=== PATIENT | male | born 1975 | race Caucasian/White ===

== ENCOUNTER → 2022-08-16 09:14 | Outpatient (BNVA) | payer OTHER, SELFPAY | PROVIDERS: PCP Internal Medicine; Visit Provider Physician Assistant | DX: Z13.89 Encounter for screening for other disorder (principal) ==

== ENCOUNTER → 2022-10-09 15:04 | Outpatient (BNVA) | payer OTHER, SELFPAY | PROVIDERS: PCP Internal Medicine; Referring Provider Internal Medicine; Visit Provider Internal Medicine | DX: Z01.810 Encounter for preprocedural cardiovascular examination (principal); R00.2 Palpitations | CPT/HCPCS: 93005; 99202 ==

== ENCOUNTER 2023-02-11 08:18 | Day surgery (SDC) | payer OTHER, SELFPAY ==
[2023-02-11 06:03] VITALS: BMI 28.6
[2023-02-11 08:21] VITALS: BP 128/85; PULSE 77; RESP 18; TEMP 36.8; O2SAT 97
[2023-02-11] MEDS: Lactated Ringers 1,000 ML 50 ML IVCONT (08:46)
--- NOTE | 2023-02-11 09:22 | HO.ANESPROP2 ---
HPI - Anesthesia Eval Consult details Narrative: 48 yo male patient for Colonoscopy PMFSH Active Problems Active Problems: All Active Problems (Updated 02/11/23 @ 09:25 by Destiny Kearney MD) Preoperative cardiovascular examination (Acute) Palpitations (Acute) Irregular heart beat (Acute) Encounter for screening colonoscopy (Acute) KRISTINE. Uses CPAP machinbe Past Medical History Medical History (Updated 02/11/23 @ 09:30 by Reina Mooney RN) Achilles rupture, left Family History Family History Mother No problems noted. Father No problems noted. Family history of problems with anesthesia: No Surgical History Surgical History (Updated 02/11/23 @ 10:14 by Destiny Kearney MD) Hx of right knee surgery History of Problems with Anesthesia: No Social History Social History Household Members Other:: maried 3 kids Alcohol intake: current Alcohol intake frequency: holidays/special occasions only Patient Tobacco Use Status: Never used Tobacco Are you DNR?: No Advance Directives: No Advance Directives Information Provided: Yes Nutrition Risks: No Nutritional Risk Current occupation: Contractor- Meds Allergies Allergy/AdvReac Type Severity Reaction Status Date / Time No Known Allergies Allergy Verified 10/09/22 15:10 Active Medications: Current Medications Lactated Ringer's (Lr) 1,000 mls @ 50 mls/hr IVCONT .Q20H TRINIDAD Last Admin: 02/11/23 08:46 Dose: 50 mls/hr Exam Exam Date and Time: February 11, 2023 0922 Height,Weight and Vital Signs: Height 5 ft 9 in Weight 87.997 kg Last Vital Signs Temp 98.3 F 02/11/23 08:21 Pulse 77 02/11/23 08:21 Resp 18 02/11/23 08:21 BP 128/85 02/11/23 08:21 Pulse Ox 97 02/11/23 08:21 O2 Del Method Room Air 02/11/23 08:21 Airway Mallampati Class: II TM Dist: >3cm Neck ROM: Full Loose/Missing/Broken Teeth: No (Denies broken, loose, missing teeth) Heart: RRR Lungs: CTAB Assessment and Plan Assessment Anesthesia Assessment: Anesthesia Plan Discussed and Chart Reviewed Final Anesthetic Review Family History of Problems with Anesthesia: No History of Problems with Anesthesia: No NPO: Yes ASA Class: II Final Preanesthetic Review: No Changes in Pt Med Stat, Meds/Allgs Chart Reviewed, Consent Obtained/Reviewed and Anes Risks/Benef Reviewed Patient Risk: Intermediate Procedure Risk: Low Assessment/Block/Sedation in SS: Assess/Block/Sedation-SS Anesthetic Plan Anesthetic Plan: MAC: Disposition: Standard PACU
--- NOTE | 2023-02-11 09:44 | MHC.SHP ---
Pre-Procedural Eval Section A Date of Service: 02/11/23 The patient is an INPATIENT: No The History & Physical has been completed within 30 days and I have reviewed it.: No Section B Chief Complaint: screening Relevant Family History (Specify if Yes): No Relevant Social History: None Present Medications: see Short Stay Collaborative assessment Medical History: Significant History (Palpitations, irregular heartbeat) History of Previous Operations: Relevant previous surgery/procedure and date(s) (History of right knee surgery) Allergies: Allergies Allergy/AdvReac Type Severity Reaction Status Date / Time No Known Allergies Allergy Verified 10/09/22 15:10 Review of Systems Sugical H&P ROS: Negative: Constitution, Cardiovascular, Respiratory and Gastrointestinal Exam Surgical H&P Exam: Normal: Heart, Normal: Lungs, Normal: Extremities and Normal: Abdomen Plan Diagnosis/Plan: Unchanged I have reviewed the history and physical and performed a pertinent physical examination on my patient. No changes have occurred unless specified. Time Spent With Patient Time: Total time managing care of this patient today ____ minutes.
--- NOTE | 2023-02-11 09:50 | W.PM.OPN ---
Operative Note Operative Note Date of Service: 02/11/23 Narrative: COLONOSCOPY TILL CECUM WITH BIOPSY AND SNARE POLYPECTOMY Pre-op diagnosis: screening, FH of colon polyps (Dad had a few polyps in his 70's) Post-op diagnosis:?Colon polyps, diverticulosis, hemorrhoids Endoscopist:? Sarah Gee MD Anesthesia:?MAC Consent: Indications for the procedure and potential complications of bleeding, perforation, reaction to medications and missed diagnosis were discussed with the patient and informed consent was obtained. Instrument: Olympus PCF H 190 L variable stiffness pediatric colonoscope Monitoring: Vital signs and clinical assessment, intermittent blood pressure monitoring, continuous EKG monitoring, Pulse oximetry and Carbon Dioxide monitoring were done throughout the procedure. Please see anesthesia flowsheet. Colon withdrawl time was 17 minutes. Procedure: The patient was placed in the left lateral decubitis position and pre-procedure medications were administered. After a digital rectal examination of the ano-rectum, the video colonoscope was inserted into the rectum and advanced through the colon to the cecum. The colonoscope was slowly withdrawn in a retrograde panoramic fashion and the colon mucosa was carefully examined including a retroflexed view of the rectum. Findings and interventions are described below. Procedure Difficulty: Without difficulty Findings: Terminal Ileum: Not evaluated Cecum: A 7-8 mm sessile polyp -removed with a cold snare. Residual polyp was removed with a cold biopsy Ascending Colon: Normal Transverse Colon: Normal Descending Colon: Moderate diverticulosis Sigmoid Colon: A 10 mm diminutive appearing polyp - removed with a cold snare. Moderate diverticulosis Rectum: Normal Ano-rectum: Moderate internal hemorrhoids Colon preparation: Excellent Impression and Post Procedure Diagnosis: Colonoscopy Findings: Two polyps removed Moderate diverticulosis seen in the left colon Moderate hemorrhoids on retroflexed exam. Rectal bleeding likely due to Hemorrhoids Plan: Await pathology results Patient has an appointment on 02/25/23 in the GI Clinic with BRYON Bardales. Repeat Colonoscopy interval based on path results - in 3-5 years if polyps are adenomatous and 10 years if polyps are hyperplastic. Colon polyps, hemorrhoids and diverticulosis handouts were given in the discharge area
[2023-02-11 10:34] VITALS: BP 96/58; PULSE 64; RESP 12; TEMP 36.3; O2SAT 94
[2023-02-11 10:49] VITALS: BP 112/68; PULSE 60; RESP 12; O2SAT 96
[2023-02-11 11:01] VITALS: BP 115/70; PULSE 73; RESP 16; TEMP 37; O2SAT 96
== END 2023-02-11 11:38 | disposition home or self-care (01) ==
PROVIDERS: PCP Internal Medicine; Visit Provider Internal Medicine Gastroenterology
PROC: 0DJD8ZZ Inspection of Lower Intestinal Tract, Via Natural or Artificial Opening Endoscopic (ICD-10-PCS; CPT 45378; principal; 2023-02-11 10:20)
DX: Z12.11 Encounter for screening for malignant neoplasm of colon (principal); Z83.71 Family history of colonic polyps; D12.0 Benign neoplasm of cecum; K63.5 Polyp of colon; K57.30 Diverticulosis of large intestine without perforation or abscess without bleeding; K64.8 Other hemorrhoids; R00.2 Palpitations; I49.9 Cardiac arrhythmia, unspecified; G47.33 Obstructive sleep apnea (adult) (pediatric); Z99.89 Dependence on other enabling machines and devices
CPT/HCPCS: 45385; 45380; 88305; J2250

== ENCOUNTER → 2023-02-11 08:18 | Outpatient (BNV) | payer OTHER, SELFPAY | PROVIDERS: PCP Internal Medicine; Visit Provider Internal Medicine Gastroenterology | DX: Z12.11 Encounter for screening for malignant neoplasm of colon (principal); D12.0 Benign neoplasm of cecum; D12.5 Benign neoplasm of sigmoid colon; K57.30 Diverticulosis of large intestine without perforation or abscess without bleeding; K64.8 Other hemorrhoids | CPT/HCPCS: 45380; 45385 ==

== ENCOUNTER 2023-02-25 10:07 | Outpatient (AMB) | payer OTHER, SELFPAY ==
--- NOTE | 2023-02-25 10:22 | A.OFFVIS_ITS ---
Intake Vital Signs 02/25/23 10:23 Height 5 ft 9 in Weight 190 lb BMI 28.1 BP 124/75 Blood Pressure Location Lt brachial Position Sitting Pulse 74 Intake Visit Reasons: S/p colon-Gerard Intake Note: Patient follow up for Colonoscopy results. Patient denies any GI issues. Loom Stop Checker Required: No Accompanied by: Self / Same As Patient Allergies No Known Allergies Allergy (Verified 02/25/23 10:22) HPI HPI Comments History of Present Illness Details 48 y/o male f/u after index screening colonoscopy No GI complaints- he expressed appreciation- good experience Reviewed procedure report, path and recommendations Recent torn achilles- No N/V/D abdominal pain- fever or chills PFSH Medical History (Updated 02/25/23 @ 10:33 by Marina Jones PA-C) Achilles rupture, left Surgical History Hx of colonoscopy Hx of right knee surgery Family History Mother No problems noted. Father No problems noted. Social History Household Members Other:: maried 3 kids Alcohol intake: current Alcohol intake frequency: holidays/special occasions only Patient Tobacco Use Status: Never used Tobacco Current occupation: Contractor- Review of Systems Const All systems reviewed & are unremarkable except as noted in HPI and below Card Denies chest pain Physical Exam Vital Signs: Last Vital Signs Pulse 74 02/25/23 10:23 BP 124/75 02/25/23 10:23 BMI result Body Mass Index 28.1 Const General: cooperative, healthy appearing, comfortable and no acute distress Orientation/consciousness: patient oriented x3 Limitations: no limitations Eyes Sclerae: sclerae normal Resp Effort & Inspection: normal respiratory effort and able to speak in complete sentences Auscultation: rales Skin General skin exam: no rashes or lesions noted Neuro General: patient oriented x3 Extrem Other: Left short ortho boot Psych Appearance: grossly normal and well kempt Mental Status: mental status grossly normal Speech and movement: Normal speech and movement present and Clear speech present Affect: normal affect Attitude: cooperative Thought process: Normal thought process present Thought content: Normal thought content present Insight: Good insight present (Psych) Judgement: Good judgement present (Psych) Results Reviewed Results Reviewed: Findings: Terminal Ileum: Not evaluated Cecum:? A 7-8 mm sessile polyp -removed with a cold snare.? Residual polyp was removed with a cold biopsy Ascending Colon:? Normal Transverse Colon:? Normal Descending Colon:? Moderate diverticulosis Sigmoid Colon:? A 10 mm diminutive appearing polyp - removed with a cold snare. ?Moderate diverticulosis Rectum:? Normal Ano-rectum:? Moderate internal hemorrhoids Colon preparation: Excellent ? Impression and Post Procedure Diagnosis: Colonoscopy Findings: Two polyps removed Moderate diverticulosis seen in the left colon Moderate hemorrhoids on retroflexed exam. Rectal bleeding likely due to Hemorrhoids Plan: Await pathology results Patient has an appointment on 02/25/23 in the GI Clinic with BRYON Bardales. Repeat Colonoscopy interval based on path results - in 3-5 years if polyps are adenomatous and 10 years if polyps are hyperplastic. Colon polyps, hemorrhoids and diverticulosis handouts were given in the discharge area Name:?Juan Pena Age/Sex: 48/M Attending: Sarah Gee MD : 1975 Submitted by: Sarah Gee MD Copies to: Cain Godinez MD MR #: [id number] ? Status: [facility] Collected: 02/11/23 Location: [facility] Received: 02/11/23 Diagnosis A.? Cecum, polypectomy:? Fragments of sessile serrated lesion/polyp; negative for cytologic dysplasia. B.? Colon, sigmoid, polypectomy:? Hyperplastic mucosal polyp. Clinical History Pre-Op Dx:? Screening Post-Op Dx: Colon polyps, diverticulosis, hemorrhoids You should undergo a colonoscopy again in 5 years Assessment & Plan Assessment & Plan (1) Sessile serrated polyp of colon: Code(s): D12.6 - Benign neoplasm of colon, unspecified Plan: 5 years AFDR- screen, 38-40 (2) Diverticulosis of colon: Code(s): K57.30 - Diverticulosis of large intestine without perforation or abscess without bleeding Plan: ER protocol HFD (3) Hemorrhoids: Code(s): K64.9 - Unspecified hemorrhoids Plan: avoid straining Plan Repeat colonoscopy- 5 yeras AFDR begin screening at 38-40 HFD- avoid straining Diverticulitis ER protocol reviewed- Patient Instructions: Repeat colonoscopy- 5 yeras AFDR begin screening at 38-40 HFD- avoid straining Diverticulitis ER protocol reviewed- Coding Level of Care Code Est Pt Level 3 (19725) Diagnoses Sessile serrated polyp of colon D12.6 Diverticulosis of colon K57.30 Hemorrhoids K64.9 Time Spent (min) 25
[2023-02-25 10:23] VITALS: BP 124/75; PULSE 74; BMI 28.1
== END 2023-02-25 11:06 | disposition home or self-care (01) ==
LOC: HO.HGI 10:07
PROVIDERS: PCP Internal Medicine; Visit Provider Physician Assistant
DX: D12.6 Benign neoplasm of colon, unspecified (principal); K57.30 Diverticulosis of large intestine without perforation or abscess without bleeding; K64.9 Unspecified hemorrhoids
CPT/HCPCS: 99213

== ENCOUNTER → 2023-02-25 10:07 | Outpatient (BNVA) | payer OTHER, SELFPAY | PROVIDERS: PCP Internal Medicine; Visit Provider Physician Assistant | DX: K57.30 Diverticulosis of large intestine without perforation or abscess without bleeding (principal); D12.0 Benign neoplasm of cecum; K63.5 Polyp of colon; K64.8 Other hemorrhoids; Z98.890 Other specified postprocedural states | CPT/HCPCS: 99212 ==

== ENCOUNTER 2023-08-12 13:35 | Outpatient (REF) | payer OTHER, SELFPAY | END 2023-08-12 13:36 | disposition home or self-care (01) | LOC: HO.CHCLDS 13:35 | PROVIDERS: Visit Provider Internal Medicine | DX: Z13.89 Encounter for screening for other disorder (principal) | CPT/HCPCS: 36415; 80053; 80061; 82306; 83036; 84443; 85025; 86803; 87536; 87900 ==

== ENCOUNTER 2024-09-29 10:52 | Outpatient (REF) | payer OTHER, SELFPAY ==
--- OUTSIDE RECORDS SUMMARY | 2024-09-29 13:02 | XMS_ITS | Encounter Summary ---
Author Organization [employer] Address [address] [place] [address] Care Team Providers Care Moisture Machine Tender Name Role Phone Cain Godinez MD Primary Care Provider Encounter Details Date Type Department Care Team ([facility] st Contact Info) Description 05/28/2022 Abstract [facility] [address] [place] [address] Provider, MD Claudia Social History Tobacco Use Types Packs/Day Years Used Date Smoking Tobacco: Never Assessed Sex and Gender Information Value Date Recorded Sex Assigned at Male 04/30/2022 10:27 AM EDT Legal Sex Male 10:27 AM EDT Gender Identity Male 06/04/2022 2:34 PM EST Sexual Orientation Straight 01/28/2023 4: 00 PM EDT documented as of this encounter Plan of Treatment Not on file documented as of this encounter Visit Diagnoses Not on filedocumented in this encounter Care Teams Moisture Machine Tender Relationship Specialty Start Date End Date Cain Godinez MD [address] [place] [address] PCP - General Internal Medicine 09/02/14 documented as of this encounter
--- OUTSIDE RECORDS SUMMARY | 2024-09-29 13:02 | XMS_ITS | Encounter Summary ---
Author Organization [email or web address] Address [address] [facility] [address] [place] [address] Care Team Providers Care [employer]el Food Service Supervisor Name Role Phone Cain Godinez MD Primary Care Provider [phone] Encounter Details Date Type Department Care Team (Latest Contact Info) Description 09/29/2024 Travel Social History Tobacco Use Types Packs/Day Years Used Date Smoking Tobacco: Never Smokeless Tobacco: Never Depression Answer Date Recorded Patient Health Questionnaire-9 Score 0 07/28/2024 Patient Health Questionnaire-9 Score 0 07/28/2024 Last PHQ-9: Questionnaire Data Not on file 0 07/28/2024 Housing Stability Answer Date Recorded What is your housing situation today? I have nannette almanzar 07/21/[address] you li ve. Do you have problems with any of the following? None of the above 07/21/2024 Food Insecurity Answer Date Recorded Within the past 12 months, y ou worried that your food would run out before you got money to buy more: Never True 07/21/2024 Within the past 12 months,th e food you bought just didn't last and you didn't have enough money to get more: Never True Transportation Answer Date Recorded In the past 12 months, has l ack of transportation kept you from medical appts, meetings, work or from getting things needed for daily living? No 07/21/2024 Utilities Answer Date Recorded In the past 12 months, has t he electric, gas, oil or water company threatened to shut off services in your home? No 07/21/2024 Depression Answer Date Recorded Patient Health Questionnaire-2 Score 0 07/28/2024 Internet Access Answer Date Recorded Internet Access Q1 Yes 07/21/2024 Internet Access Q2 Not on file 07/21/2024 Sex and Gender Information Value Date Recorded Sex Assigned at Male 04/30/2022 10:27 AM EDT Legal Sex Male 10:27 AM EDT Gender Identity Male 06/04/2022 2:34 PM EST Sexual Orientation Straight 01/28/2023 4: 00 PM EDT documented as of this encounter Plan of Treatment Not on file documented as of this encounter Visit Diagnoses Not on filedocumented in this encounter Additional Health Concerns Assessment Noted Time PHQ-9 Depression Total Score: 0 07/28/19 25 3:40 PM EST documented as of this encounter Care Teams Motel Food Service Supervisor Relationship Specialty Start Date End Date Cain Godinez MD [address] [place] [id number] PCP - General Internal Medicine 09/02/14 documented as of this encounter
--- OUTSIDE RECORDS SUMMARY | 2024-09-29 13:02 | XMS_ITS | Encounter Summary ---
Author Organization [employer] Address [address] [place] [address] Care Team Providers Care Marketing Segment Manager Name Role Phone Cain Godinez MD Primary Care Provider [phone] Reason for Referral * - Pending Review Specialty Diagnoses / Procedures Referred By Contenedelia t Referred To Contact Procedures Skin excision Cain Godinez MD [address] [place] [address] Phone: tel: fax: Referral ID Status Reason Start Date Expiration Date V isits Requested Visits Authorized [id number] Pending Review 09/29/2024 09/29/2025 1 1 Reason for Visit * Reason Comments Complete skin exam Encounter Details Date Type Department Care Team ([facility] st Contact Info) Description 09/29/2024 10:00 AM EDT Office Visit [facility] [address] [place] [address] Cain Godinez MD [address] [place] [address] Compound nevus (Primary Dx); Ephelides; Nevus Social History Tobacco Use Types Packs/Day Years [...] PM EDT documented as of this encounter Last Filed Vital Signs Vital Sign Reading Time Taken Comments Blood Pressure 127/80 09/29/2024 10:10 AM EDT Pulse 66 09/29/2024 10:10 AM EDT Temperature 36.7 ??C (98 ??F) 09/29/2024 10:10 AM EDT Respiratory Rate 20 09/29/2024 10:10 AM EDT Oxygen Saturation 98% 09/29/2024 10:10 AM EDT Inhaled Oxygen Concentration - - Weight 92.1 kg (203 lb) 09/29/2024 10:10 AM EDT Height 175.3 cm (5' 9 ) 09/29/2024 10:10 AM EDT Body Mass Index 29.98 09/29/2024 10:10 AM EDT documented in this encounter Progress Notes * Cain Godinez MD - 09/29/2024 10:00 AM EDT Subjective Patient ID: Juan Pena is a 49 y.o. male who presents for Complete skin exam. HPI No h/o mole change. No pruritus. Patient Active Problem List Diagnosis Right knee pain Obstructive sleep apnea syndrome Current Outpatient Medications on File Prior to Visit Medication Sig Dispense Refill Diclofenac Sodium 1 % gel To apply to the affected area 3 times a day 100 g 0 No current facility-administered medications on file prior to visit. No Known Allergies Review of Systems Constitutional: Negative for appetite change, chills and diaphoresis. Respiratory: Negative for cough, choking and shortness of breath. Cardiovascular: Negative for leg swelling. Gastrointestinal: Negative for anal bleeding and blood in stool. Objective BP 127/80 (BP Location: Left arm, Patient Position: Sitting, BP Cuff Size: Adult long) Pulse 66 Temp 98 ??F (36.7 ??C) (Oral) Resp 20 Ht 5' 9 (1.753 m) Wt 203 lb (92.1 kg) SpO2 98% BMI29.98 kg/m?? Physical Exam Constitutional: General: He is not in acute distress. Appearance: Normal appearance. He is not ill-appearing, toxic-appearing or diaphoretic. Cardiovascular: Rate and Rhythm: Normal rate. Skin: Comments: Multiple hyperpigmented macules ( light to dark brown) of the upper back and shoulders 2) 5 x 5 mm brown dome shaped papule w/ a regular border of the epigastric area of the abdomen. 3) 2 x 2 mm brown dome-shaped papule with irregular border of the epigastric area Neurological: Mental Status: He is alert. Assessment/Plan Diagnoses and all orders for this visit: Compound nevus Comments: Reassurance. No acute intervention needed. Ephelides Comments: Regular use of sunscreen Patient was reassured. No acute intervention needed. Nevus Comments: As above. Orders: - Skin excision documented in this encounter Plan of Treatment Not on file documented as of this encounter Procedures Procedure Name Priority Date/Time Associated Diagnosis Comments SKIN EXCISION Routine 09/29/2024 10:25 AM EDT Nevus documented in this encounter Results * Skin excision (09/29/2024 10:25 AM EDT) us Cain Godinez MD DERM PROCEDURE ORDERABLES F inal Result documented in this encounter Visit Diagnoses Diagnosis Compound nevus- Primary Benign neoplasm of skin, site unspecified Ephelides Other dyschromia Nevus Benign neoplasm of skin, site unspecified documented in this encounter Additional Health Concerns Assessment Noted Time PHQ-9 Depression Total Score: 0 07/28/19 25 3:40 PM EST documented as of this encounter Care Teams Marketing Segment Manager Relationship Specialty Start Date End Date Cain Godinez MD [address] [place] [id number] PCP - General Internal Medicine 09/02/14 documented as of this encounter
--- OUTSIDE RECORDS SUMMARY | 2024-09-29 13:02 | XMS_ITS | Clinical Summary ---
Author Organization [employer] Address [address] [place] [address] Care Team Providers Care Fur Machine Operator Name Role Phone Cain Godinez MD Primary Care Provider [phone]- [phone] Allergies No known active allergies Medications Diclofenac Sodium 1 % gelIndications: Chronic pain of right knee To apply to the affected area 3 times a day 100 g 07/28/2024 Active Active Problems Problem Noted Date Diagnosed Date Right knee pain 06/04/2022 Obstructive sleep apnea syndrome 06/04/2022 Encounters Date Type Department Care Team Description 09/29/2024 10:00 AM EDT Office Visit [facility] [address] [place], [place] [phone] Cain Godinez MD Compound nevus (Primary Dx); Ephelides; Nevus 09/29/2024 Travel 07/29/2024 Orders Only [facility] [address] [place] [address] ProviderClaudia MD 07/28/2024 2:45 PM EST Office Visit [facility] [address] [place], [place] [phone] Cain Godinez MD Chronic pain of right knee (Primary Dx); Enthesopathy of knee; Annual physical exam; Skin growth; Encounter for immunization; Dietary counseling; Exercise counseling; Overweight 07/28/2024 Travel 07/21/2024 Patient Outreach [facility] [address] [place], [place] [phone] Cain Godinez MD Pre-visit Planning (SDOH negative, Tobacco screening negative.) from Last 3 Months Immunizations Name Administration Dates Next Due Influenza injectable quadriv alent IIV4 with preservative 06/04/2022 Tdap 07/28/2024 Family History Medical History Relation Name Comments Seizure disorder Father Leukemia Maternal Grandmother Breast cancer Mother Relation Name Status Comments Father Maternal Grandmother Mother Social History Tobacco Use Types Packs/Day Years Used Date Smoking Tobacco: Never Smokeless Tobacco: Never Tobacco Cessation:Counseling Given: Not Answered Depression Answer Date Recorded Patient Health Questionnaire-9 [...] Orientation Straight 01/28/2023 4: 00 PM EDT Last Filed Vital Signs Vital Sign Reading [...] Mass Index 29.98 09/29/2024 10:10 AM EDT Plan of Treatment Health Maintenance Due Date Last Done Comments CT Colonography 1975 Colonoscopy 1975 Colorectal Cancer Screening 1975 FIT DNA/Cologuard 1975 FIT 1975 FOBT 1975 HIV Screening 1975 Sigmoidoscopy 1975 Derm Melanoma Skin Check 1975 Family Planning (PISQ) 1990 Hepatitis B Vaccines (1 of 3 - 19+ 3-dose series) 1994 Influenza Vaccine (#1) 2024 06/04/2022 Postp oned from 03/01/2024 (Patient Refused) Zoster Vaccines (1 of 2) 2025 Alcohol/Substance Use Screening 07/28/2025 07/28/2024 COVID-19 Vaccine (3 - 2023-2 5 season) 2025 01/19/2021, 12/22/2020 Postponed from 03/01/2024 (Patient Refused) Depression Screening 07/28/2025 07/28/2024, 07/28/2024 SDOH Screening 07/28/2025 07/28/2024 Tobacco Screening 07/28/2025 07/28/2024 Lipid Panel 08/12/2028 08/12/2023 DTaP/Tdap/Td Vaccines (2 - T d or Tdap) 07/28/2034 07/28/2024 RSV Patients and Patients Aged 60 years or older (1 - 1-dose 75+ series) 2050 Hepatitis C Screening Completed 08/12/2023 HIB Vaccines Aged Out No longer eligi ble based on patient's age to complete this topic HPV Vaccines Aged Out No longer eligi ble based on patient's age to complete this topic Hepatitis A Vaccines Aged Out No long er eligible based on patient's age to complete this topic IPV Vaccines Aged Out No longer eligi ble based on patient's age to complete this topic Meningococcal Vaccine Aged Out No kaylee jordon eligible based on patient's age to complete this topic Pneumococcal Vaccine: Pediatrics (0 to 5 Years) and At-Risk Patients (6 to 49) Years) Aged Out No longer eligible b ased on patient's age to complete this topic RSV under 20 months Aged Out No longe r eligible based on patient's age to complete this topic Rotavirus Vaccines Aged Out No longer eligible based on patient's age to complete this topic Procedures Procedure Name Priority Date/Time Associated Diagnosis Comments SKIN EXCISION Routine 09/29/2024 10:25 AM EDT Nevus HEPATITIS C AB W/REFL TO HCV RNA, QN, PCR Routine 08/12/2023 1:45 PM EST LIPID PANEL, STANDARD Routine 08/12/2023 1:45 PM EST from Last 3 Months or Most Recently Relevant to Health Maintenance Results * Skin excision (09/29/2024 10:25 AM EDT) us Cain Godinez MD DERM PROCEDURE ORDERABLES F inal Result * Hepatitis C Antibody with Reflex to HCV, RNA, Quantitative, Real-Time PCR (08/12/2023 1:45 PM EST) Hepatitis C Antibody Nonreactive Nonreactive [facility] Comment:Antibodies to HCV no t detected; does not exclude early acuteHCV infection. 08/12/2023 1:45 PM EST 08/12/2023 2:30 PM EST us Sage Mann MD LAB BLOOD ORDERABL ES Final Result [facility] [address] [place] [phone] * (ABNORMAL) Lipid Panel, Standard (08/12/2023 1:45 PM EST) Triglycerides 110 <150 mg/dL [facility] Comment:Desirable Triglyceri de: less than 150 mg/dLBorderline High Triglyceride 150-199 mg/dLHigh Triglyceride: 200-499 mg/dLVery High Triglyceride: greater than or equal to 5OO mg/dL Cholesterol 190 <200 mg/dL [facility] Comment:Desirable Cholestero l: less than 200 mg/dLBorderline High Cholesterol: 200-239 mg/dLHigh Cholesterol: greater than 239 mg/dL LDL Cholesterol Calculated 113(H) <100 mg/dL [facility] Comment:Desirable LDL: less than 100 mg/dLNear Optimal/Above Optimal LDL: 110- 129 mg/dLBorderline High LDL: 130-159 mg/dLHigh LDL: 160-189 mg/dLVery High LDL: greater than or equal to 190 mg/dL HDL Cholesterol 55 >40 mg/dL [facility] Comment:Desirable HDL: great er than 40 mg/dL Note: This HDL assay may give artificially low results in patients with liver disease. 08/12/2023 1:45 PM EST 08/12/2023 2:34 PM EST Sage Mann MD LAB BLOOD ORDERABL ES Final Result [facility] [address] [place] [phone] from Last 3 Months or Most Recently Relevant to Health Maintenance Insurance [facility] C3 HSN F[employer] [facility] GOLD Care Teams Fur Machine Operator Relationship Specialty Start Date End Date Cain Godinez MD [address] [place] [id number] PCP - General Internal Medicine 09/02/14
--- OUTSIDE RECORDS SUMMARY | 2024-09-29 13:02 | XMS_ITS | Encounter Summary ---
Author Organization [employer] Address [address] [address] Care Team Providers Care Comfort Advisor Name Role Phone Cain Godinez MD Primary Care Provider [phone]- [phone] Encounter Details Date Type Department Care Team (Late st Contact Info) Description 08/13/[address] [facility] [address] [place], [place] [phone] Sage Arambula MD [address] [place] [address] Social History Tobacco Use Types Packs/Day Years Used Date Smoking Tobacco: Never Smokeless Tobacco: Never Sex and Gender Information Value Date Recorded Sex Assigned at Male 04/30/2022 10:27 AM EDT Legal Sex Male 10:27 AM EDT Gender Identity Male 06/04/2022 2:34 PM EST Sexual Orientation Straight 01/28/2023 4: 00 PM EDT documented as of this encounter Plan of Treatment Not on file documented as of this encounter Visit Diagnoses Not on filedocumented in this encounter Care Teams Comfort Advisor Relationship Specialty Start Date End Date Cain Godinez MD [address] [place], [place] [phone] PCP - General Internal Medicine 09/02/14 documented as of this encounter
--- OUTSIDE RECORDS SUMMARY | 2024-09-29 13:02 | XMS_ITS | Encounter Summary ---
Author Organization [employer] Address [address] [facility] [address] [place] [address] Care Team Providers Care Electronics Department Manager Name Role Phone Cain Godinez MD Primary Care Provider [phone] [phone] Encounter Details Date Type Department Care Team (Late st Contact Info) Description 07/29/2024 Orders Only [facility] [address] [place] [address] ProviderClaudia MD Social History Tobacco Use Types Packs/Day Years [...] Procedure Name Priority Date/Time Associated Diagnosis Comments SURGICAL PATHOLOGY Routine 02/11/2023 8:55 AM EDT documented in this encounter Results * Surgical Pathology (02/11/2023 8:55 AM EDT) us Historical Provider LAB PATHOLOGY ORDERABLES Final Result documented in this encounter Visit Diagnoses Not on filedocumented in this encounter Additional Health Concerns Assessment Noted Time PHQ-9 Depression Total Score: 0 07/28/19 25 3:40 PM EST documented as of this encounter Care Teams Electronics Department Manager Relationship Specialty Start Date End Date Cain Godinez MD [address] [place] [phone] PCP - General Internal Medicine 09/02/14 documented as of this encounter
[2024-09-29 14:50] LABS: MANUAL DIFF FLAG NO
[2024-09-29 15:02] LABS: Basophils Percent Auto 0.8 % (0-2); Eosinophils Absolute Auto 0.2 X10*3/uL (0.0-0.4); Eosinophils Percent Auto 3.5 % (0-4); Hematocrit 41.7 % (42.0-52.0); Hemoglobin 14.6 g/dl (14.0-18.0); Imm Gran Abs Auto 0.02 X10*3/uL (0.00-0.03); Imm Gran Pct Auto 0.4 % (0.0-0.4); Lymphocytes Absolute Auto 1.8 X10*3/uL (1.2-4.9); Lymphocytes Percent Auto 36.4 % (20-40); Mean Corpuscular Hemoglobin 28.5 pg (27.0-33.0); Mean Corpuscular Volume 81.4 fL (80.0-98.0); Mean Platelet Volume 9.2 fL (9.4-12.4); Monocytes Absolute Auto 0.5 X10*3/uL (0.1-1.2); Neutrophils Absolute Auto 2.3 x10*3/uL (2.0-8.3); Neutrophils Percent Auto 47.9 % (45-73); Platelet Count 199 X10*3/uL (160-400); Red Blood Count 5.12 X10*6/uL (4.60-5.80); Red Cell Distribution Width 12.9 % (11.0-16.0); White Blood Count 4.8 X10*3/uL (4.8-10.8)
[2024-09-29 17:24] LABS: Alanine Aminotransferase 41 U/L (0-40); Albumin Level 4.6 g/dL (3.5-5.0); Alkaline Phosphatase 48 U/L (39-117); Anion Gap 10 (12-20); Aspartate Amino Transferase 39 U/L (5-37); Bilirubin Total 0.8 mg/dL (0.0-1.0); Blood Urea Nitrogen 15 mg/dL (9-16); Calcium 9.3 mg/dL (8.4-10.2); Carbon Dioxide 26 mmol/L (22-29); Chloride 108 mmol/L (96-108); Cholesterol 220 mg/dL (<200); Estimated Glomerular Filt Rate > 60; Glucose Random 90 mg/dL (60-115); HDL Cholesterol 43 mg/dL (>40); LDL Cholesterol Calculated 158 mg/dL (<100); Potassium 4.4 mmol/L (3.3-5.1); Sodium 140 mmol/L (135-145); Total Protein 7.5 g/dL (6.5-8.0); Triglycerides 96 mg/dL (<150)
[2024-09-29 17:40] LABS: TSH reflex Free T4 1.14 uIU/mL (0.32-4.0)
== END 2024-09-29 10:53 | disposition home or self-care (01) ==
LOC: HO.CHCLDS 10:52
PROVIDERS: Visit Provider Internal Medicine
DX: Z00.00 Encounter for general adult medical examination without abnormal findings (principal)
CPT/HCPCS: 36415; 80053; 80061; 84443; 85025